=== PATIENT | male | born 1960 | race Caucasian/White ===

== ENCOUNTER → 2021-08-28 | Outpatient (CLI) | payer SELFPAY ==
[~2021-08-28] MED LIST: ASPI-1238 PO; CIPR500T5 PO; TMSL.4C PO
== END ==
LOC: CARD 11:30
PROVIDERS: ATTEND Internal Medicine Cardiovascular Disease
DX: I08.0 Rheumatic disorders of both mitral and aortic valves (principal); I11.9 Hypertensive heart disease without heart failure; I25.10 Atherosclerotic heart disease of native coronary artery without angina pectoris
CPT/HCPCS: 93306

== ENCOUNTER → 2021-09-16 | Outpatient (CLI) | payer OTHER ==
[~2021-09-16] MED LIST changes: +CATHETER FLUSH 10 ML SYR IVP PRN
[2021-09-16 09:22] VITALS: BP 158/95
--- NOTE | 2021-09-16 11:55 | Cardiology Stress Test Report ---
Stress Test Report Date of Procedure/Referring: Date of Procedure: Sep 16, 2021 PCP Anai Song MD Admitting Physician Heather Humphries Addiction Psychiatrist Indications: HTN Baseline Heart Rate: 91 Baseline Blood Pressure: Blood Pressure Systolic: 158 Blood Pressure Diastolic: 95 Vital Signs Date Time Temp Pulse Resp B/P (MAP) Pulse Ox O2 Delivery O2 Flow Rate FiO2 09/16/21 09:22 93 158/95 (116) 98 Baseline Vital Signs Vital Signs Date Time Temp Pulse Resp B/P (MAP) Pulse Ox O2 Delivery O2 Flow Rate FiO2 09/16/21 09:22 93 158/95 (116) 98 Baseline EKG: Baseline EKG: NSR Summary: After explaining the procedure and details to the patient, he signed the consent and was brought to the stress nuclear laboratory. Patient exercised on standard Alfred protocol, EKG, heart rate and blood pressure were monitored continuously, resting and stress doses of radio tracer were injected, imaging was acquired and reviewed in the short axis, horizontal long axis and vertical long axis views Patient was able to exercise for a total of 6 minutes on Alfred protocol, METs 7.3 Maximum heart rate 125 Maximum blood pressure 191/72 Stress EKG, Minimal nondiagnostic changes Recovery EKG, Return to baseline TID: 0.94 SSS: 1 SDS: 1 EF: 40 Conclusion: 1. Fair exercise tolerance for a total of 6 minutes on standard Alfred protocol, 7.3 METS achieving 79% of maximal expected heart rate 2. Appropriate heart rate response to exercise with hypertensive response to exercise, peak blood pressure 191/72 return to baseline during recovery 3. Nonspecific EKG changes with exercise return to baseline during recovery 4. Diaphragmatic attenuation with mild decrease uptake involving the inferior wall with subtle reversibility, no significant ischemia or infarction on SPECT images 5. Normal left ventricular size with mild hypokinesia at the anterior wall, ejection fraction 40% ANAI SONG MD Sep 16, 2021 11:55
== END ==
LOC: CARD 07:49
PROVIDERS: ATTEND Internal Medicine Cardiovascular Disease
DX: I10 Essential (primary) hypertension (principal); I25.10 Atherosclerotic heart disease of native coronary artery without angina pectoris
CPT/HCPCS: 78452; 93017; A9502

== ENCOUNTER 2023-02-16 05:35 | Outpatient (CLI) | payer MEDICAID ==
[~2023-02-16] VITALS: Ht 167.6 cm; Wt 53.3 kg
[~2023-02-16 05:35] MED LIST changes: -CATHETER FLUSH 10 ML SYR IVP PRN
== END 2023-02-18 13:35 | disposition home or self-care (01) ==
LOC: PREOP 05:35
PROVIDERS: ATTEND Surgery
DX: Z01.818 Encounter for other preprocedural examination (principal)